=== PATIENT | male | born 1955 | race Hispanic/Latino ===

== ENCOUNTER 2018-09-02 18:53 | Emergency (ER) | payer OTHER, MEDICARE ==
[2018-09-02 19:16] LABS: Bilirubin Negative (Negative); Blood, Urine Moderate (Negative); Clarity CLEAR (Clear); Glucose, Urine (Dipstick) 100 mg/dL (Negative); Leukocyte Negative (Negative); Nitrite Negative (Negative); Protein, Urine (Dipstick) 300 mg/dL (Neg-Trace); Specific Gravity, Urine 1.007 (1.002-1.036); Urobilinogen 0.2 mg/dL (0.2-1.0); pH, Urine 7.5 (5.0-9.0)
[2018-09-02 19:18] LABS: Bacteria/HPF None Seen HPF (None Seen); Hyaline Casts/LPF 0-3 HYALINE CAST LPF (0-3 Hyaline); Pathc Cast-AUWi Flag 0.58 (0-2.49); RBC/HPF 21-50 HPF (0-3); Squamous Epithelial 0-3 HPF (0-3); Yeast-AUWi Flag 24.2 (0-25.0)
[2018-09-02 19:43] LABS: #Eosinphils 0.2 thou/uL (0.0-0.7); #Lymphocytes 1.1 thou/uL (1.20-3.40); #Monocytes 0.6 thou/uL (0.11-0.59); %Basophils 0.4 % (0.0-1.0); %Eosinophils 2.4 % (0.0-10.0); %Lymphocytes 12.5 % (21.0-51.0); %Monocytes 7.1 % (0.0-10.0); %Neutrophils 77.7 % (42.0-75.0); Hemoglobin 13.6 g/dL (14.0-18.0); Mean Corpuscular HGB CONC 32.9 g/dL (32.0-36.0); Mean Corpuscular Hemoglobin 32.5 pg (27.0-31.0); Mean Corpuscular Volume 98.6 fL (78.0-98.0); Mean Platelet Volume 6.9 fL (7.4-10.4); Platelet Count 174 thou/uL (130-400); RBC Distribution Width 11.8 % (11.5-14.5); Red Blood Cell (RBC) Count 4.19 mill/uL (4.70-6.10)
[2018-09-02 19:58] LABS: ALT (SGPT) 15 U/L (8-55); AST (SGOT) 17 U/L (5-34); Albumin 3.8 g/dL (3.5-5.0); Alkaline Phosphatase 76 U/L (40-150); Anion Gap 15 mmol/L (10-20); BUN (Urea Nitrogen) 64 mg/dL (8.4-25.7); Bilirubin, Total 0.5 mg/dL (0.2-1.2); Calc. Creatinine Clearance 0 mL/min (70-130); Calcium 9.6 mg/dL (7.8-10.44); Carbon Dioxide 22 mmol/L (22-29); Chloride 104 mmol/L (98-107); Estimated GFR-MDRD 7; Glucose 122 mg/dL (70-105); Lipase 56 U/L (8-78); Potassium 4.4 mmol/L (3.5-5.1); Protein, Total 6.8 g/dL (6.0-8.3); Sodium 137 mmol/L (136-145)
[2018-09-02] MEDS ORDERED: Ondansetron PF 4 MG/2 ML Vial ONE (21:26)
[2018-09-02] MEDS ORDERED: Morphine 4 MG/ML VIAL ONE (21:26)
[2018-09-02] MEDS ORDERED: Acetaminophen/Codeine 30-300mg Tablet ONE (22:49)
--- NOTE | 2018-09-02 22:53 | CT ---
CT OF THE ABDOMEN AND PELVIS WITHOUT IV CONTRAST: 09/02/18 INDICATION: Left sided flank pain. COMPARISON: None. FINDINGS: There is 3.6 mm stone proximal left ureter causing mild left hydronephrosis. There is an approximatel y 3 mm stone seen within the superior pole left kidney. There are additional smaller 1 to 2 mm stones scattered within the left kidney. There is a 3 mm stone seen within the right mid kidney. There are other smaller 1 to 2 mm stones seen within the right kidney. A small exophytic cyst seen involving t he anterior aspect of the right mid kidney. There are smaller hypodensities involving both kidneys th at are difficult to characterize due to size. There is suspected 2.2 cm cyst involving the left mid k idney. There is layering gallstones within the gallbladder. There is a dialysis catheter within the left lower quadrant of the abdomen. There is mild bibasilar atelectasis. There is a small 4 mm pulmonary nodule within the right lower lo be. Unopacified liver, pancreas, and adrenal glands appear within normal limits. No drainable fluid colle ction is grossly evident. Bilateral total hip prosthesis. No definite acute osseous abnormality is ev ident. IMPRESSION: 1. 3.6 mm proximal left ureteral calculus and mild left hydronephrosis. 2. Bilateral nephrolithiasis. 3. Bilateral renal cysts. 4. Cholelithiasis. 5. Left lower quadrant peritoneal dialysis catheter. 6. Other chronic findings as above. POS: [facility]
== END 2018-09-02 23:05 | disposition home or self-care (01) ==
LOC: ERS 18:53
DX: N13.2 Hydronephrosis with renal and ureteral calculous obstruction (principal); M06.9 Rheumatoid arthritis, unspecified; I12.0 Hypertensive chronic kidney disease with stage 5 chronic kidney disease or end stage renal disease; N18.6 End stage renal disease; Z99.2 Dependence on renal dialysis; Z79.899 Other long term (current) drug therapy
CPT/HCPCS: 36415; 74176; 80053; 81003; 81015; 83690; 85025; 96374; 96375; J2270; J2405